=== PATIENT | female | born 1935 | race American Indian/Alaskan Native ===

== ENCOUNTER 2017-04-03 07:25 | Emergency (ER) | payer MEDICARE, BC ==
[~2017-04-03] VITALS: Ht 154.9 cm; Wt 66.5 kg
[~2017-04-03 07:25] MED LIST: ATOR10TA87 PO; CITA-100 PO; ESTR0.6261 PO; FLUT1AER INH; LISI1TAB13 PO; OMEP-84 PO; PRAM0.5T12 PO; SYN0.025T PO
[2017-04-03] MEDS ORDERED: HYDR25CA PO (09:39)
[2017-04-03] MEDS ORDERED: hyDROXYzine 50 mg/ml injection ***IM only IM ONE (09:45)
[2017-04-03 10:44] VITALS: BP 144/69
== END 2017-04-03 10:47 | disposition home or self-care (01) ==
LOC: ER 07:26
DX: L29.8 Other pruritus (principal); J44.9 Chronic obstructive pulmonary disease, unspecified; Z87.891 Personal history of nicotine dependence; Z88.7 Allergy status to serum and vaccine; Z91.040 Latex allergy status; Z88.6 Allergy status to analgesic agent; Z79.899 Other long term (current) drug therapy
CPT/HCPCS: 96372; 99283; J3410

== ENCOUNTER 2017-06-03 16:55 | Inpatient (IN) | payer MEDICARE, BC ==
[~2017-06-03] VITALS: Ht 152.4 cm; Wt 62.0 kg
[~2017-06-03 16:55] MED LIST changes: +HYDR25CA PO
[2017-06-03] MEDS ORDERED: normal saline 1000ML IV soln IVB ONE (20:45)
[2017-06-03 21:03] LABS: BASOPHILS % (AUTO) 0.3 % (0-1); EOSINOPHILS # (AUTO) 0.2 X10'3 (0-0.9); EOSINOPHILS % (AUTO) 2.7 % (0-6); HEMATOCRIT 37.7 % (35.0-45.0); HEMOGLOBIN 12.9 g/dl (12.0-16.0); LYMPHOCYTES # (AUTO) 1.7 X10'3 (1.1-4.8); LYMPHOCYTES % (AUTO) 23.7 % (21-51); MEAN CORPUSCULAR HEMOGLOBIN 31.6 PG (27.0-31.0); MEAN CORPUSCULAR HGB CONC 34.2 % (33.0-36.5); MEAN CORPUSCULAR VOLUME 92.4 FL (78-98); MEAN PLATELET VOLUME 8.7 FL (7.4-10.4); MONOCYTES # (AUTO) 0.8 X10'3 (0-0.9); NEUTROPHILS # (AUTO) 4.5 X10'3 (1.8-7.7); NEUTROPHILS % (AUTO) 62.3 % (42-75); PLATELET COUNT 209 X10'3 (140-440); RED BLOOD COUNT 4.08 X10'6 (4.20-5.60); RED CELL DISTRIBUTION WIDTH 14.9 % (11.5-14.5); WHITE BLOOD COUNT 7.3 X10'3 (4.5-11.0)
[2017-06-03 21:17] LABS: ALANINE AMINOTRANSFERASE 23 U/L (12-78); ALBUMIN 3.3 G/DL (3.4-5.0); ALBUMIN/GLOBULIN RATIO 0.8 (1.1-1.5); ALKALINE PHOSPHATASE 55 IU/L (46-116); ANION GAP 12 (8-16); ASPARTATE AMINO TRANSFERASE 14 U/L (10-37); BILIRUBIN,TOTAL 0.4 MG/DL (0.1-1.0); BLOOD UREA NITROGEN 28 MG/DL (7-18); BUN/CREATININE RATIO 17.6 (6.6-38.0); CALCIUM 9.1 MG/DL (8.5-10.1); CHLORIDE 103 MMOL/L (99-107); CREATININE 1.59 MG/DL (0.40-0.90); GLUCOSE 108 MG/DL (70-104); SODIUM 141 MMOL/L (135-145); TOTAL CARBON DIOXIDE 26.4 MMOL/L (24-32); TOTAL PROTEIN 7.5 G/DL (6.4-8.2); eGFR 31 ML/MIN
[2017-06-03] MEDS ORDERED: potassium Cl 20 mEq SR tablet PO STA (21:45)
[2017-06-03 23:07] LABS: CLARITY,URINE CLEAR (Clear); COLOR,URINE YELLOW (Yellow); GLUCOSE, URINE NEGATIVE (Neg); KETONES,URINE NEGATIVE (Neg); LEUKOCYTE ESTERASE ,URINE NEGATIVE (Neg); NITRITES, URINE NEGATIVE (Neg); OCCULT BLOOD,URINE NEGATIVE (Neg); PROTEIN,URINE TRACE mg/dl (Neg); UROBILINOGEN,URINE 0.2 E.U/dL (0.2-1.0)
[2017-06-03 23:14] LABS: BACTERIA,URINE FEW /HPF (Neg); RBC,URINE 0-2 /HPF (0-2); SQUAMOUS EPITHELIAL CELL,UR FEW /LPF (FEW); UA COLLECTION TYPE STRAIGHT CATH; WBC,URINE 0-4 /HPF (0-4)
[2017-06-04] MEDS ORDERED: loperamide 2mg capsule PO ONE
[2017-06-04] MEDS ORDERED: vancomycin 125mg/5ml ORAL solution 5ml UD bottle PO SCH (00:45)
[2017-06-04] MEDS ORDERED: UMEC1DIS (00:52)
[2017-06-04] MEDS ORDERED: vancomycin 125mg/5ml ORAL solution 5ml UD bottle ONE (01:41)
[2017-06-04] MEDS ORDERED: albuterol 2.5 MG/3 ML nebule NEB PRN (02:00)
[2017-06-04] MEDS ORDERED: acetaminophen 325mg tablet PO PRN (02:00)
[2017-06-04] MEDS ORDERED: HYDROcodone/acetaminophen 5mg/325mg tablet PO PRN (02:00)
[2017-06-04] MEDS ORDERED: ondansetron/PF 4mg/2ml inj IV PRN (02:00)
[2017-06-04] MEDS ORDERED: magnesium 2GM in 50ml NS 50 ML IV PRN ×2 (02:00→15:45)
[2017-06-04] MEDS ORDERED: magnesium 4gm in 100ml NS 100 ML IV PRN ×2 (02:00→15:45)
[2017-06-04] MEDS ORDERED: potassium Cl 40MEQ/NS 500ml 500 ML IV PRN ×2 (02:00)
[2017-06-04] MEDS ORDERED: potassium Cl 20 mEq SR tablet PO PRN ×2 (02:00)
[2017-06-04] MEDS ORDERED: mag hydrox/Alum hydrox/simeth 30ml oral suspension PO PRN (02:00)
[2017-06-04] MEDS ORDERED: HYDROcodone/acetaminophen 10/325mg tab PO PRN (02:00)
[2017-06-04] MEDS ORDERED: magnesium hydroxide 30ml (MOM) UD suspension PO PRN (02:00)
[2017-06-04] MEDS: potassium Cl 20mEq in NS 1,000 ML IV SCH ×2 (03:44→11:58)
[2017-06-04] MEDS: K and/or MAG REPLACEMENT MC SCH (08:00)
[2017-06-04 08:07] LABS: C DIFF SPECIMEN=DIARRHEA? ACCEPTABLE; C DIFFICILE TOXINS A&B NEGATIVE (Neg)
[2017-06-04 08:08] LABS: C DIFF ANTIGEN SEE COMMENTS (NEGATIVE)
[2017-06-04] MEDS: pantoprazole 40mg Tablet.DR PO SCH (08:10)
[2017-06-04 08:35] LABS: C-REACTIVE PROTEIN 3.14 MG/DL (0.0-0.5); MAGNESIUM 1.4 MG/DL (1.5-2.4); PHOSPHORUS 2.9 MG/DL (2.3-4.5); POTASSIUM 3.1 MMOL/L (3.5-5.1)
[2017-06-04 08:36] LABS: HEMOGLOBIN A1C 6.1 % (4.5-6.2)
[2017-06-04] MEDS: levoTHYROXINE 25mcg tablet PO SCH (09:04)
[2017-06-04] MEDS: HYDROchlorothiazide 25mg tablet PO SCH (09:05)
[2017-06-04] MEDS: lisinopril 20mg tablet PO SCH (09:05)
[2017-06-04] MEDS: heparin, porcine 5000 units/ml vial SQ SCH ×2 (09:06→20:20)
[2017-06-04] MEDS: citalopram 20mg tablet PO SCH (09:06)
[2017-06-04] MEDS: pramipexole 0.25mg tablet PO SCH ×3 (09:42→20:20)
[2017-06-04 10:44] LABS: C DIFF TOXIN (LAMP) POSITIVE (NEG)
[2017-06-04 14:42] VITALS: BP 124/70
[2017-06-04] MEDS ORDERED: magnesium Cl slow-release 64mg tablet PO PRN (15:45)
[2017-06-04] MEDS: potassium Cl oral solution 20 MEQ/15 ML PO SCH (17:22)
[2017-06-04 20:00] VITALS: BP 93/44
[2017-06-04] MEDS: lactobacillus rhamnosus 10,000 MMU CELLS/CAPSULE PO SCH (20:20)
[2017-06-04] MEDS: atorvastatin 10mg tablet PO SCH (20:20)
[2017-06-04] MEDS ORDERED: temazepam 15mg capsule PO PRN (21:00)
[2017-06-05 00:11] VITALS: BP 95/50
[2017-06-05 05:07] LABS: BASOPHILS % (AUTO) 0.5 % (0-1); EOSINOPHILS # (AUTO) 0.3 X10'3 (0-0.9); EOSINOPHILS % (AUTO) 5.3 % (0-6); HEMATOCRIT 34.3 % (35.0-45.0); HEMOGLOBIN 11.6 g/dl (12.0-16.0); LYMPHOCYTES # (AUTO) 1.6 X10'3 (1.1-4.8); LYMPHOCYTES % (AUTO) 32.5 % (21-51); MEAN CORPUSCULAR HGB CONC 33.7 % (33.0-36.5); MEAN CORPUSCULAR VOLUME 94.7 FL (78-98); MEAN PLATELET VOLUME 9.1 FL (7.4-10.4); MONOCYTES # (AUTO) 0.6 X10'3 (0-0.9); MONOCYTES % (AUTO) 11.8 % (2-12); NEUTROPHILS # (AUTO) 2.4 X10'3 (1.8-7.7); NEUTROPHILS % (AUTO) 49.9 % (42-75); PLATELET COUNT 192 X10'3 (140-440); RED BLOOD COUNT 3.62 X10'6 (4.20-5.60); WHITE BLOOD COUNT 4.8 X10'3 (4.5-11.0)
[2017-06-05 05:34] LABS: ANION GAP 11 (8-16); BLOOD UREA NITROGEN 20 MG/DL (7-18); BUN/CREATININE RATIO 14.9 (6.6-38.0); CALCIUM 8.9 MG/DL (8.5-10.1); CHLORIDE 111 MMOL/L (99-107); CREATININE 1.34 MG/DL (0.40-0.90); GLUCOSE 87 MG/DL (70-104); MAGNESIUM 1.4 MG/DL (1.5-2.4); POTASSIUM 4.1 MMOL/L (3.5-5.1); SODIUM 143 MMOL/L (135-145); TOTAL CARBON DIOXIDE 20.6 MMOL/L (24-32); eGFR 38 ML/MIN
[2017-06-05] MEDS: normal saline 1000ml 1,000 ML IV SCH ×2 (06:41→16:20)
[2017-06-05 07:04] VITALS: BP 109/61
[2017-06-05] MEDS: K and/or MAG REPLACEMENT MC SCH (08:00)
[2017-06-05] MEDS: pramipexole 0.25mg tablet PO SCH ×3 (08:00→20:19)
[2017-06-05] MEDS: citalopram 20mg tablet PO SCH (08:21)
[2017-06-05] MEDS: magnesium Cl slow-release 64mg tablet PO PRN ×2 (08:21→20:20)
[2017-06-05] MEDS: lisinopril 20mg tablet PO SCH (08:21)
[2017-06-05] MEDS: levoTHYROXINE 25mcg tablet PO SCH (08:21)
[2017-06-05] MEDS: HYDROchlorothiazide 25mg tablet PO SCH (08:21)
[2017-06-05] MEDS: pantoprazole 40mg Tablet.DR PO SCH (08:21)
[2017-06-05] MEDS: potassium Cl oral solution 20 MEQ/15 ML PO SCH (08:21)
[2017-06-05] MEDS: lactobacillus rhamnosus 10,000 MMU CELLS/CAPSULE PO SCH ×2 (08:21→20:19)
[2017-06-05] MEDS: heparin, porcine 5000 units/ml vial SQ SCH ×2 (08:34→20:19)
[2017-06-05 11:00] VITALS: BP 114/71
[2017-06-05 20:00] VITALS: BP 110/53
[2017-06-05] MEDS: atorvastatin 10mg tablet PO SCH (20:19)
[2017-06-05] MEDS: ipratropium/albuterol 3ml nebule NEB PRN (20:20)
[2017-06-06 00:25] VITALS: BP 94/53
[2017-06-06] MEDS: normal saline 1000ml 1,000 ML IV SCH ×3 (02:20→19:43)
[2017-06-06 05:35] LABS: BASOPHILS % (AUTO) 0.5 % (0-1); EOSINOPHILS # (AUTO) 0.2 X10'3 (0-0.9); EOSINOPHILS % (AUTO) 4.2 % (0-6); HEMATOCRIT 33.6 % (35.0-45.0); HEMOGLOBIN 11.4 g/dl (12.0-16.0); LYMPHOCYTES # (AUTO) 1.9 X10'3 (1.1-4.8); LYMPHOCYTES % (AUTO) 32.7 % (21-51); MEAN CORPUSCULAR HEMOGLOBIN 31.9 PG (27.0-31.0); MEAN CORPUSCULAR VOLUME 93.8 FL (78-98); MEAN PLATELET VOLUME 9.6 FL (7.4-10.4); MONOCYTES # (AUTO) 0.5 X10'3 (0-0.9); MONOCYTES % (AUTO) 8.7 % (2-12); NEUTROPHILS # (AUTO) 3.1 X10'3 (1.8-7.7); NEUTROPHILS % (AUTO) 53.9 % (42-75); PLATELET COUNT 196 X10'3 (140-440); RED BLOOD COUNT 3.58 X10'6 (4.20-5.60); WHITE BLOOD COUNT 5.8 X10'3 (4.5-11.0)
[2017-06-06 05:54] LABS: ALBUMIN 2.9 G/DL (3.4-5.0); ANION GAP 13 (8-16); BLOOD UREA NITROGEN 13 MG/DL (7-18); BUN/CREATININE RATIO 10.9 (6.6-38.0); CALCIUM 8.6 MG/DL (8.5-10.1); CHLORIDE 112 MMOL/L (99-107); CREATININE 1.19 MG/DL (0.40-0.90); GLUCOSE 101 MG/DL (70-104); MAGNESIUM 1.4 MG/DL (1.5-2.4); POTASSIUM 4.2 MMOL/L (3.5-5.1); SODIUM 145 MMOL/L (135-145); TOTAL CARBON DIOXIDE 19.9 MMOL/L (24-32); eGFR 44 ML/MIN
[2017-06-06 07:22] VITALS: BP 112/66
[2017-06-06] MEDS: pramipexole 0.25mg tablet PO SCH ×3 (08:00→20:13)
[2017-06-06] MEDS: citalopram 20mg tablet PO SCH (08:00)
[2017-06-06] MEDS: pantoprazole 40mg Tablet.DR PO SCH (08:22)
[2017-06-06] MEDS: lisinopril 20mg tablet PO SCH (08:24)
[2017-06-06] MEDS: HYDROchlorothiazide 25mg tablet PO SCH (08:24)
[2017-06-06] MEDS: lactobacillus rhamnosus 10,000 MMU CELLS/CAPSULE PO SCH ×2 (08:24→20:13)
[2017-06-06] MEDS: levoTHYROXINE 25mcg tablet PO SCH (08:25)
[2017-06-06] MEDS: heparin, porcine 5000 units/ml vial SQ SCH ×2 (08:26→20:21)
[2017-06-06] MEDS: K and/or MAG REPLACEMENT MC SCH (08:34)
[2017-06-06 11:37] VITALS: BP 136/72
[2017-06-06 19:30] VITALS: BP 139/74
[2017-06-06] MEDS: ipratropium/albuterol 3ml nebule NEB PRN (19:43)
[2017-06-06] MEDS: atorvastatin 10mg tablet PO SCH (20:14)
[2017-06-06 23:00] VITALS: BP 131/85
[2017-06-07] MEDS: normal saline 1000ml 1,000 ML IV SCH (05:31)
[2017-06-07 05:40] LABS: BASOPHILS % (AUTO) 0.5 % (0-1); EOSINOPHILS # (AUTO) 0.3 X10'3 (0-0.9); EOSINOPHILS % (AUTO) 4.6 % (0-6); HEMATOCRIT 29.9 % (35.0-45.0); HEMOGLOBIN 10.1 g/dl (12.0-16.0); LYMPHOCYTES # (AUTO) 1.5 X10'3 (1.1-4.8); LYMPHOCYTES % (AUTO) 26.3 % (21-51); MEAN CORPUSCULAR HEMOGLOBIN 31.9 PG (27.0-31.0); MEAN CORPUSCULAR HGB CONC 33.7 % (33.0-36.5); MEAN CORPUSCULAR VOLUME 94.7 FL (78-98); MEAN PLATELET VOLUME 9.6 FL (7.4-10.4); MONOCYTES # (AUTO) 0.5 X10'3 (0-0.9); MONOCYTES % (AUTO) 8.6 % (2-12); NEUTROPHILS # (AUTO) 3.5 X10'3 (1.8-7.7); PLATELET COUNT 183 X10'3 (140-440); RED BLOOD COUNT 3.15 X10'6 (4.20-5.60); RED CELL DISTRIBUTION WIDTH 14.8 % (11.5-14.5); WHITE BLOOD COUNT 5.9 X10'3 (4.5-11.0)
[2017-06-07 06:00] LABS: ALBUMIN 2.7 G/DL (3.4-5.0); ANION GAP 11 (8-16); BLOOD UREA NITROGEN 9 MG/DL (7-18); BUN/CREATININE RATIO 7.8 (6.6-38.0); CALCIUM 8.2 MG/DL (8.5-10.1); CHLORIDE 110 MMOL/L (99-107); CREATININE 1.15 MG/DL (0.40-0.90); GLUCOSE 105 MG/DL (70-104); MAGNESIUM 2.2 MG/DL (1.5-2.4); POTASSIUM 3.8 MMOL/L (3.5-5.1); SODIUM 141 MMOL/L (135-145); TOTAL CARBON DIOXIDE 19.9 MMOL/L (24-32); eGFR 46 ML/MIN
[2017-06-07] MEDS: citalopram 20mg tablet PO SCH (07:22)
[2017-06-07] MEDS: lactobacillus rhamnosus 10,000 MMU CELLS/CAPSULE PO SCH (07:22)
[2017-06-07] MEDS: pantoprazole 40mg Tablet.DR PO SCH (07:22)
[2017-06-07] MEDS: pramipexole 0.25mg tablet PO SCH ×2 (07:23→12:53)
[2017-06-07] MEDS: levoTHYROXINE 25mcg tablet PO SCH (07:23)
[2017-06-07] MEDS: HYDROchlorothiazide 25mg tablet PO SCH (07:23)
[2017-06-07] MEDS: lisinopril 20mg tablet PO SCH (07:23)
[2017-06-07] MEDS: heparin, porcine 5000 units/ml vial SQ SCH (07:24)
[2017-06-07 07:36] VITALS: BP 122/62
[2017-06-07] MEDS: K and/or MAG REPLACEMENT MC SCH (08:00)
[2017-06-07 11:30] VITALS: BP 127/72
[2017-06-07] MEDS ORDERED: VANC125C4 PO (13:29)
== END 2017-06-07 15:35 | disposition home or self-care (01) | DRG 372 ==
LOC: ER 16:55 → ED HOLD 06-04 01:58 → EDBEDREQ 06-04 13:24 → MED 3N 06-04 14:15
PROVIDERS: ADMIT Internal Medicine; ATTEND Family Medicine
DX: A04.72 Enterocolitis due to Clostridium difficile, not specified as recurrent (principal); N17.9 Acute kidney failure, unspecified; E86.0 Dehydration; J44.9 Chronic obstructive pulmonary disease, unspecified; N28.1 Cyst of kidney, acquired; E83.42 Hypomagnesemia; E87.6 Hypokalemia; E03.9 Hypothyroidism, unspecified; I12.9 Hypertensive chronic kidney disease with stage 1 through stage 4 chronic kidney disease, or unspecified chronic kidney disease; N18.9 Chronic kidney disease, unspecified; E78.5 Hyperlipidemia, unspecified; K21.9 Gastro-esophageal reflux disease without esophagitis; F32.9 Major depressive disorder, single episode, unspecified; Z78.0 Asymptomatic menopausal state; Z88.7 Allergy status to serum and vaccine; Z88.8 Allergy status to other drugs, medicaments and biological substances; Z91.040 Latex allergy status; Z91.048 Other nonmedicinal substance allergy status; Z79.899 Other long term (current) drug therapy
CPT/HCPCS: 36415; 71250; 74176; 80048; 80053; 81001; 83036; 83605; 83690; 83735; 84100; 84132; 84145; 84443; 85025; 85651; 86140; 87070; 87324; 87449; 87493; 94640; 94760; 99284; 99285; A6257; A6258; J1644; J3475; J3480; J7030

== ENCOUNTER 2017-06-15 12:29 | Emergency (ER) | payer MEDICARE, BC ==
[~2017-06-15] VITALS: Ht 182.9 cm; Wt 66.0 kg
[~2017-06-15 12:29] MED LIST changes: -ATOR10TA87 PO; -ESTR0.6261 PO; -FLUT1AER INH; -HYDR25CA PO; +UMEC1DIS; +VANC125C4 PO
[2017-06-15] MEDS ORDERED: ipratropium/albuterol 3ml nebule NEB ONE (13:10)
[2017-06-15 13:30] LABS: BASOPHILS % (AUTO) 0.3 % (0-1); EOSINOPHILS # (AUTO) 0.3 X10'3 (0-0.9); EOSINOPHILS % (AUTO) 2.5 % (0-6); HEMATOCRIT 33.9 % (35.0-45.0); HEMOGLOBIN 11.3 g/dl (12.0-16.0); LYMPHOCYTES # (AUTO) 2.2 X10'3 (1.1-4.8); LYMPHOCYTES % (AUTO) 21.3 % (21-51); MEAN CORPUSCULAR HEMOGLOBIN 31.6 PG (27.0-31.0); MEAN CORPUSCULAR HGB CONC 33.4 % (33.0-36.5); MEAN CORPUSCULAR VOLUME 94.8 FL (78-98); MEAN PLATELET VOLUME 8.6 FL (7.4-10.4); MONOCYTES # (AUTO) 0.4 X10'3 (0-0.9); MONOCYTES % (AUTO) 4.1 % (2-12); NEUTROPHILS # (AUTO) 7.3 X10'3 (1.8-7.7); NEUTROPHILS % (AUTO) 71.8 % (42-75); PLATELET COUNT 201 X10'3 (140-440); RED BLOOD COUNT 3.57 X10'6 (4.20-5.60); RED CELL DISTRIBUTION WIDTH 15.1 % (11.5-14.5); WHITE BLOOD COUNT 10.1 X10'3 (4.5-11.0)
[2017-06-15 13:40] LABS: PARTIAL THROMBOPLASTIN TIME 25 SECONDS (22-32); PROTHROMBIN TIME 10.2 SECONDS (9.0-12.0)
[2017-06-15 13:40] LABS: ABG BASE EXCESS 1.7 mmol/L (-2.0-3.0); ABG HCO3 26.2 mmol/L (22.0-26.0); ABG OXYGEN SATURATION 96.9 % (95-98); ABG PCO2 (T) 40.8 mmHg (32.0-45.0); ABG PH (T) 7.425 (7.350-7.450); ABG PO2 (T) 95.8 mmHg (83-108); ALLEN'S TEST Positive; FCOHb 0.1 % (0.5-1.5); FLOW 2 L/min; FO2Hb 96.8 % (94-100)
[2017-06-15] MEDS ORDERED: ipratropium/albuterol 3ml nebule ONE (13:45)
[2017-06-15 13:53] LABS: ALANINE AMINOTRANSFERASE 28 U/L (12-78); ALBUMIN 3.3 G/DL (3.4-5.0); ALBUMIN/GLOBULIN RATIO 0.8 (1.1-1.5); ALKALINE PHOSPHATASE 58 IU/L (46-116); ANION GAP 11 (8-16); ASPARTATE AMINO TRANSFERASE 17 U/L (10-37); BILIRUBIN,TOTAL 0.3 MG/DL (0.1-1.0); BLOOD UREA NITROGEN 18 MG/DL (7-18); BUN/CREATININE RATIO 13.5 (6.6-38.0); CALCIUM 8.5 MG/DL (8.5-10.1); CHLORIDE 105 MMOL/L (99-107); CREATININE 1.33 MG/DL (0.40-0.90); GLUCOSE 141 MG/DL (70-104); POTASSIUM 3.3 MMOL/L (3.5-5.1); SODIUM 141 MMOL/L (135-145); TOTAL CARBON DIOXIDE 25.2 MMOL/L (24-32); TOTAL PROTEIN 7.3 G/DL (6.4-8.2); eGFR 38 ML/MIN
[2017-06-15] MEDS ORDERED: acetaminophen w/codeine (30MG) #3 tablet PO ONE (14:50)
[2017-06-15] MEDS ORDERED: GUAI120L55 PO (16:06)
[2017-06-15 16:19] VITALS: BP 128/47
== END 2017-06-15 16:20 | disposition home or self-care (01) ==
LOC: ER 12:30
DX: R05 Cough (principal); R06.02 Shortness of breath; J44.9 Chronic obstructive pulmonary disease, unspecified; Z88.8 Allergy status to other drugs, medicaments and biological substances; Z91.040 Latex allergy status; Z79.899 Other long term (current) drug therapy
CPT/HCPCS: 36415; 36600; 71045; 80053; 82803; 83605; 83880; 84484; 85018; 85025; 85610; 85730; 87040; 87502; 87503; 93005; 94640; 94760; 99285

== ENCOUNTER 2019-01-16 05:30 | Emergency (ER) | payer MEDICARE, BC ==
[~2019-01-16] VITALS: Ht 154.9 cm; Wt 66.6 kg
[~2019-01-16 05:30] MED LIST changes: +GUAI120L55 PO; -LISI1TAB13 PO; +LISI1TAB29 PO; -VANC125C4 PO; +VANC125C5 PO
[2019-01-16] MEDS ORDERED: HYDR-3965 PO (06:11)
[2019-01-16] MEDS ORDERED: CEPH-572 PO (06:11)
[2019-01-16] MEDS ORDERED: HYDROcodone/acetaminophen 5mg/325mg tablet PO ONE (06:15)
[2019-01-16 06:25] VITALS: BP 119/93
== END 2019-01-16 06:26 | disposition home or self-care (01) ==
LOC: ER 05:30
DX: T63.441A Toxic effect of venom of bees, accidental (unintentional), initial encounter (principal); I10 Essential (primary) hypertension; J44.9 Chronic obstructive pulmonary disease, unspecified; E03.9 Hypothyroidism, unspecified; Z90.49 Acquired absence of other specified parts of digestive tract; Z98.890 Other specified postprocedural states; Z87.891 Personal history of nicotine dependence; Z91.040 Latex allergy status; Z88.8 Allergy status to other drugs, medicaments and biological substances; Z79.2 Long term (current) use of antibiotics; Z79.899 Other long term (current) drug therapy; Y92.89 Other specified places as the place of occurrence of the external cause
CPT/HCPCS: 99283

== ENCOUNTER 2019-11-29 09:48 | Outpatient (CLI) | payer MEDICARE, BC ==
[~2019-11-29] VITALS: Ht 154.9 cm; Wt 65.8 kg
[2019-11-29 10:15] LABS: TOTAL HEMOGLOBIN 9.4 G/dl (12.0-16.0)
[2019-11-29] MEDS ORDERED: albuterol 2.5 MG/3 ML nebule NEB ONE (10:30)
== END 2019-11-29 23:59 | disposition home or self-care (01) ==
LOC: RT 09:48
PROVIDERS: ATTEND Internal Medicine Pulmonary Disease
DX: J44.9 Chronic obstructive pulmonary disease, unspecified (principal); R94.2 Abnormal results of pulmonary function studies; J98.4 Other disorders of lung
CPT/HCPCS: 85018; 94060; 94727; 94729; 94760

== ENCOUNTER 2022-01-08 05:39 | Emergency (ER) | payer MEDICARE, BC ==
[~2022-01-08] VITALS: Ht 154.9 cm; Wt 64.1 kg
[~2022-01-08 05:39] MED LIST changes: -LISI1TAB29 PO; +LISI1TAB53 PO
[2022-01-08 09:34] LABS: BASOPHILS % (AUTO) 0.5 % (0-1); EOSINOPHILS # (AUTO) 0.2 X10'3 (0-0.9); HEMATOCRIT 33.5 % (35.0-45.0); HEMOGLOBIN 10.9 g/dl (12.0-16.0); LYMPHOCYTES # (AUTO) 1.8 X10'3 (1.1-4.8); LYMPHOCYTES % (AUTO) 23.3 % (21-51); MEAN CORPUSCULAR HEMOGLOBIN 29.4 PG (27.0-31.0); MEAN CORPUSCULAR HGB CONC 32.4 g/dL (33.0-36.5); MEAN CORPUSCULAR VOLUME 90.8 FL (78-98); MEAN PLATELET VOLUME 8.9 FL (7.4-10.4); MONOCYTES # (AUTO) 0.4 X10'3 (0-0.9); MONOCYTES % (AUTO) 5.8 % (2-12); NEUTROPHILS # (AUTO) 5.3 X10'3 (1.8-7.7); NEUTROPHILS % (AUTO) 68.4 % (42-75); PLATELET COUNT 200 X10'3 (140-440); RED BLOOD COUNT 3.69 X10'6 (4.20-5.60); RED CELL DISTRIBUTION WIDTH 15.6 % (11.5-14.5); WHITE BLOOD COUNT 7.8 X10'3 (4.5-11.0)
[2022-01-08 09:45] LABS: ALANINE AMINOTRANSFERASE 15 U/L (12-78); ALBUMIN 3.4 G/DL (3.4-5.0); ALBUMIN/GLOBULIN RATIO 0.9 (1.1-1.5); ALKALINE PHOSPHATASE 60 IU/L (46-116); ANION GAP 5 (8-16); ASPARTATE AMINO TRANSFERASE 13 U/L (10-37); BILIRUBIN,TOTAL 0.1 MG/DL (0.1-1.0); BLOOD UREA NITROGEN 23 MG/DL (7-18); BUN/CREATININE RATIO 18.3 (6.6-38.0); CALCIUM 8.9 MG/DL (8.5-10.1); CHLORIDE 105 MMOL/L (99-107); CREATININE 1.26 MG/DL (0.40-0.90); GLUCOSE 88 MG/DL (70-104); POTASSIUM 4.3 MMOL/L (3.5-5.1); SODIUM 142 MMOL/L (135-145); TOTAL CARBON DIOXIDE 31.7 MMOL/L (24-32); TOTAL PROTEIN 7.1 G/DL (6.4-8.2); eGFR 40 ML/MIN
[2022-01-08] MEDS ORDERED: HYDROcodone/acetaminophen 10/325mg tab PO ONE (10:25)
[2022-01-08] MEDS ORDERED: bisoprolol 5mg tablet PO ONE (10:25)
[2022-01-08] MEDS ORDERED: HYDR-3965 PO (10:38)
[2022-01-08 11:00] VITALS: BP 165/69
== END 2022-01-08 11:01 | disposition home or self-care (01) ==
LOC: ER 05:40
DX: M25.511 Pain in right shoulder (principal); I10 Essential (primary) hypertension; J44.9 Chronic obstructive pulmonary disease, unspecified; E03.9 Hypothyroidism, unspecified; G89.29 Other chronic pain; M54.50 Low back pain, unspecified; Z88.8 Allergy status to other drugs, medicaments and biological substances; Z91.09 Other allergy status, other than to drugs and biological substances; Z88.7 Allergy status to serum and vaccine; Z91.040 Latex allergy status; Z88.5 Allergy status to narcotic agent; Z98.890 Other specified postprocedural states; Z87.891 Personal history of nicotine dependence
CPT/HCPCS: 36415; 73030; 80053; 84484; 85025; 93005; 99285; A4565

== ENCOUNTER 2022-10-09 12:23 | Emergency (ER) | payer MEDICARE, BC ==
[~2022-10-09] VITALS: Ht 152.4 cm; Wt 61.0 kg
[2022-10-09 14:22] VITALS: BP 186/124
--- NOTE | 2022-10-09 14:22 | NUR ---
Dr. Bernardo notified of high blood pressure.
[2022-10-09] MEDS ORDERED: PENI500T2 PO (15:39)
== END 2022-10-09 15:56 | disposition home or self-care (01) ==
LOC: ER 12:24
DX: S01.81XA Laceration without foreign body of other part of head, initial encounter (principal); M27.63 Post-osseointegration mechanical failure of dental implant; I10 Essential (primary) hypertension; J44.9 Chronic obstructive pulmonary disease, unspecified; E03.9 Hypothyroidism, unspecified; Z88.8 Allergy status to other drugs, medicaments and biological substances; Z88.7 Allergy status to serum and vaccine; Z91.040 Latex allergy status; Z98.890 Other specified postprocedural states; W19.XXXA Unspecified fall, initial encounter; Y93.89 Activity, other specified; Y92.89 Other specified places as the place of occurrence of the external cause; Y99.8 Other external cause status
CPT/HCPCS: 70450; 70486; 99284

== ENCOUNTER 2022-10-21 05:56 | Outpatient (CLI) | payer MEDICARE, BC ==
[~2022-10-21] VITALS: Ht 154.9 cm; Wt 61.2 kg
[~2022-10-21 05:56] MED LIST changes: +PENI500T2 PO
[2022-10-21 07:40] LABS: TOTAL HEMOGLOBIN 10.6 G/dl (12.0-16.0)
[2022-10-21] MEDS ORDERED: albuterol 2.5 MG/3 ML nebule NEB ONE (08:05)
[2022-10-21 08:17] VITALS: PULSE 76; RESP 16; O2SAT 96
== END 2022-10-21 23:59 | disposition home or self-care (01) ==
LOC: RT 05:56
PROVIDERS: ATTEND Internal Medicine Pulmonary Disease
DX: J44.9 Chronic obstructive pulmonary disease, unspecified (principal); R94.2 Abnormal results of pulmonary function studies
CPT/HCPCS: 85018; 94060; 94727; 94729; 94760

== ENCOUNTER 2024-03-09 07:31 | Outpatient (CLI) | payer MEDICARE, BC ==
[~2024-03-09] VITALS: Ht 154.9 cm; Wt 56.2 kg
[~2024-03-09 07:31] MED LIST changes: -PENI500T2 PO
[2024-03-09 08:02] LABS: TOTAL HEMOGLOBIN 10.7 G/dl (12.0-16.0)
[2024-03-09] MEDS: albuterol 2.5 MG/3 ML nebule NEB ONE (08:34)
[2024-03-09 08:38] VITALS: PULSE 73; RESP 16; O2SAT 95
[2024-03-09 09:06] VITALS: PULSE 68; RESP 16
== END 2024-03-09 23:59 | disposition home or self-care (01) ==
LOC: RT 07:31
PROVIDERS: ATTEND Internal Medicine Pulmonary Disease
DX: J44.9 Chronic obstructive pulmonary disease, unspecified (principal)
CPT/HCPCS: 85018; 94060; 94727; 94729; 94760; Z7610